=== PATIENT | female | born 1995 ===

== ENCOUNTER → 2019-03-09 | Outpatient (CLI) | payer OTHER ==
--- NOTE | 2019-03-10 02:20 | REP ---
Clinical: Trauma left first toe . Technique: AP, lateral, bilateral oblique views left first toe . Findings: The osseous structures and joint spaces are intact and normal. There is no evidence for acute fracture or dislocation. Surrounding soft tissues are unremarkable. No subcutaneous emphysema or radiodense foreign body. Impression: No acute fracture or dislocation. Electronically Signed by Davi Treadwell MD 03/10/2019 02:11 A
== END ==
LOC: M WUC 13:46
PROVIDERS: ATTEND Physician Assistant
DX: S90.112A Contusion of left great toe without damage to nail, initial encounter (principal); X58.XXXA Exposure to other specified factors, initial encounter; Y92.89 Other specified places as the place of occurrence of the external cause